=== PATIENT | female | born 1970 | race Caucasian/White ===

== ENCOUNTER 2017-01-17 15:17 | Emergency (ER) | payer OTHER | END 2017-01-17 17:48 | disposition home or self-care (01) | LOC: FER 15:17 | DX: M23.92 Unspecified internal derangement of left knee (principal); I10 Essential (primary) hypertension; Z88.5 Allergy status to narcotic agent; Z88.6 Allergy status to analgesic agent; Z79.899 Other long term (current) drug therapy | CPT/HCPCS: 73564; 99283 ==